=== PATIENT | female | born 1980 | race Two or more races ===

== ENCOUNTER 2021-11-22 14:25 | Emergency (ER) | payer MEDICAID, OTHER ==
[~2021-11-22] VITALS: Ht 152.4 cm; Wt 81.6 kg
[2021-11-22] MEDS ORDERED: LORazepam 0.5 MG TAB PO ONE (17:15)
[2021-11-22 18:08] VITALS: BP 161/98
== END 2021-11-22 18:40 | disposition home or self-care (01) ==
LOC: EDBD 14:25 → ER 14:25
DX: F41.9 Anxiety disorder, unspecified (principal); F32.9 Major depressive disorder, single episode, unspecified; F10.10 Alcohol abuse, uncomplicated

== ENCOUNTER 2024-11-18 01:01 | Emergency (ER) | payer MEDICAID, OTHER ==
[~2024-11-18] VITALS: Ht 165.1 cm; Wt 75.0 kg
[2024-11-18 01:10] VITALS: BP 147/92; PULSE 91; RESP 16; O2SAT 96
--- NOTE | 2024-11-18 01:25 | ED.PDOC ---
History of Present Illness HPI Comments 44-year-old female came to ER due to anxiety. Patient does have history of anxiety. States she was asleep earlier and she woke up with numbness and tingling over her right arm, followed by shortness of breath, dizziness, near syncope and nausea. States he had a similar event before due to her anxiety. 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 History Family History Family History: Reviewed,noncontributory to illness, No family hx of Cancer, No family hx of DM, No family hx of Heart aleena, No family hx of HTN, No family hx o fKidney aleena, No family hx of Liver aleena, No family hx of Lung aleena, No family hx of Stroke Social History Smoker: Non-Smoker Alcohol: Heavy Drugs: Denies Drug Use Lives In: Home Constitutional: denies: chills, diaphoresis, fatigue, fever, malaise, sweats, weakness, others EENTM: denies: blurred vision, double vision, ear bleeding, ear discharge, ear drainage, ear pain, ear ringing, eye pain, eye redness, hearing loss, mouth pain, mouth swelling, nasal discharge, nose bleeding, nose congestion, nose pain, photophobia, tearing, throat pain, throat swelling, voice changes, others Respiratory: reports: SOB at rest; denies: cough, hemoptysis, orthopnea, shortness of breath, SOB with excertion, stridor, wheezing, others Cardiovascular: denies: chest pain, dizzy spells, diaphoresis, Dyspnea on exertion, edema, irregular heart beat, left arm pain, lightheadedness, palpitations, PND, syncope, others Gastrointestinal: reports: nausea; denies: abdomen distended, abdominal pain, blood streaked bowels, constipated, diarrhea, dysphagia, difficulty swallowing, hematemesis, melena, poor appetite, poor fluid intake, rectal bleeding, rectal pain, vomiting, others Genitourinary: denies: abnormal vagina bleeding, burning, dyspareunia, dysuria, flank pain, frequency, hematuria, incontinence, pain, , vagina discharge, urgency, others Neurological: reports: dizziness, fainting, tingling (Right arm); denies: headache, left sided numbness, left sided weakness, numbness, paresthesia, pre- existing deficit, right sided numbness, right sided weakness, seizure, speech problems, tremors, weakness, others Musculoskeletal: denies: back pain, gout, joint pain, joint swelling, muscle pain, muscle stiffness, neck pain Integumetry: denies: bruises, change in color, change in hair/nails, dryness, laceration, lesions, lumps, rash, wounds, others Allergic/Immunocompromised: denies: Difficulty Healing, Frequent Infections, Hives, Itching, others Hematologic/Lymphatic: denies: anemia, blood clots, easy bleeding, easy bruising, swollen glands, others Endocrine: denies: excessive hunger, excessive sweating, excessive thirst, excessive urination, flushing, intolerance to cold, intolerance to heat, unexplained weight gain, unexplained weight loss, others Psychiatric: reports: anxiety; denies: bipolar disorder, depression, hopeless, panic disorder, schizophrenia, sleepless, suicidal, others Physical Exam General Appearance: Mild Distress, Normal HEENT: Normal ENT Inspection, Pharynx Normal, TMs Normal Neck: Full Range of Motion, Non-Tender, Normal, Normal Inspection Respiratory: Chest Non-Tender, Lungs Clear, No Accessory Muscle Use, No Respiratory Distress, Normal Breath Sounds Cardiovascular: No Edema, No JVD, No Murmur, No Gallop, Normal Peripheral Pulses, Regular Rate/Rhythm Breast Exam: Deferred Gastrointestinal: No Organomegaly, Non Tender, No Pulsatile Mass, Normal Bowel Sounds, Soft Genitalia: Deferred Pelvic: Deferred Rectal: Deferred Extremities: No calf tenderness, Normal capillary refill, Normal inspection, Normal range of motion, Non-tender, No pedal edema Musculoskeletal : Apperance: Normal Neurologic: Alert, investigator utility bill 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 Was a procedure done?: No Differential Dx Considerations may include: Anemia, electrolyte imbalance, anxiety X-Ray, Labs, Meds, VS The patient has severe anxiety. She is noncompliant with medication and refused to take an additional medication. We decided that lab tests would not help her and recommended that she follow up with the psychiatrist and therapist for further evaluation and care. Time of 1ST Reevaluation: 01:22 Reevaluation 1ST: Unchanged Patient Education/Counseling: Diagnosis, Treatment Family Education/Counseling: No Family Present Departure 1 Departure Time of Disposition: 01:29 Impression: Primary Impression: Anxiety Additional Impression: Panic attack Disposition: HOME / SELF CARE / HOMELESS Condition: Stable Additional Instructions: Reassessed patient, vital signs stable. Denies any new symptoms. Patient is able to tolerate PO and ambulate/be mobile at their baseline without concern. Risks and benefits of all medications given or prescribed, if any, discussed. All lab work, imaging and diagnostic studies were reviewed by me. The patient was counseled extensively on my clinical impression, diagnosis, expected course of the disease, and plan, including their follow-up care. Will discharge patient. Patient instructed to follow up with Primary Care Physician within 24-48 hours. Strict return precautions given for further exacerbation of symptoms or for new symptoms. The patient was given the opportunity to ask questions and all questions were answered by myself and the nursing/tech staff. Patient is in agreement with the care plan. The patient verbally expressed understanding of the discharge instructions, including the reasons to return to the Emergency Department. Discharged With: Self Critical Care Note Critical Care Time?: No Stability Stability form required: No Heart Score Heart Score: Heart Score Response (Comments) Value History N/A 0 EKG N/A 0 Age N/A 0 Risk Factors N/A 0 Troponin N/A 0 Total 0 I personally scribed for MACIEJ UGALDE MD ([email or web address]) on 11/18/24 at 01:25. Electronically submitted by Jose Christian ([email or web address]). MACIEJ UGALDE MD Nov 18, 2024 01:25
== END 2024-11-18 04:06 | disposition home or self-care (01) ==
LOC: ER 01:01
DX: F41.0 Panic disorder [episodic paroxysmal anxiety] (principal); R55 Syncope and collapse; R42 Dizziness and giddiness; R11.0 Nausea; Z79.1 Long term (current) use of non-steroidal anti-inflammatories (NSAID)

== ENCOUNTER 2025-01-06 12:55 | Emergency (ER) | payer MEDICAID ==
[~2025-01-06] VITALS: Ht 162.6 cm; Wt 68.6 kg
[2025-01-06 13:58] VITALS: PULSE 73; RESP 17; O2SAT 97
[2025-01-06] MEDS: ONDANSETRON HCL 4 MG/2 ML VIAL IV ONE (13:58)
--- NOTE | 2025-01-06 13:58 | ED.PDOC ---
History of Present Illness HPI Comments This is a 44-year-old female who comes in with chief complaint of status post fall from a ladder. The patient states that she was climbing a ladder when the ladder slipped down and she fell forward and landed on her chest and abdominal area. The patient states that she is not having really difficulty breathing but she is having a significant amount of pain. She states that the pain is over the 8/10 at this time. She was able to ambulate into the emergency department's without any difficulty. She does have some bruising towards her chest area. Chief Complaint: Fall Injury Time Seen by MD: 13:07 Primary Care Provider: unknown Reviewed Notes: Nurses Notes, Medications, Allergies (Allergies to acetaminophen) Allergies: Coded Allergies: Acetaminophen (Verified Allergy, Unknown, 11/22/21) Home Meds Active Scripts Nitrofurantoin Monohydrate Mac (Macrobid) 100 Mg Cap, 100 MG PO BID for 5 Days, #10 CAP Prov:RANJEET ROQUE MD 01/06/25 Information Source: Patient Mode of Arrival: Ambulatory Severity: Moderate Timing: Minutes Duration: Since onset Prehospital treatment: None Location: Tenderness to the abdominal and chest area with some bruising to the chest Past Medical History PAST MEDICAL HISTORY: Anxiety, High Lipids Past Medical History (Other): Prediabetic Surgical History: Denies all surgeries Surgical History (Other): Left thumb partial amputation DOVETAILER History: No Pertinent DOVETAILER History Family History Family History: Reviewed,noncontributory to illness, No family hx of Cancer, No family hx of DM, No family hx of Heart aleena, No family hx of HTN, No family hx ofKidney aleena, No family hx of Liver aleena, No family hx of Lung aleena, No family hx of Stroke Social History Smoker: Non-Smoker Alcohol: Heavy Drugs: Denies Drug Use Lives In: Home Constitutional: denies: chills, diaphoresis, fatigue, fever, malaise, sweats, weakness, others EENTM: denies: blurred vision, double vision, ear bleeding, ear discharge, ear drainage, ear pain, ear ringing, eye pain, eye redness, hearing loss, mouth pain, mouth swelling, nasal discharge, nose bleeding, nose congestion, nose pain, photophobia, tearing, throat pain, throat swelling, voice changes, others Respiratory: denies: cough, hemoptysis, orthopnea, SOB at rest, shortness of breath, SOB with excertion, stridor, wheezing, others Cardiovascular: reports: chest pain; denies: dizzy spells, diaphoresis, Dyspnea on exertion, edema, irregular heart beat, left arm pain, lightheadedness, palp itations, PND, syncope, others Gastrointestinal: reports: abdominal pain; denies: abdomen distended, blood streaked bowels, constipated, diarrhea, dysphagia, difficulty swallowing, hematemesis, melena, nausea, poor appetite, poor fluid intake, rectal bleeding, rectal pain, vomiting, others Genitourinary: denies: abnormal vagina bleeding, burning, dyspareunia, dysuria, flank pain, frequency, hematuria, incontinence, pain, , vagina disch arge, urgency, others Neurological: denies: dizziness, fainting, headache, left sided numbness, left sided weakness, numbness, paresthesia, pre-existing deficit, right sided numbness, right sided weakness, seizure, speech problems, tingling, tremors, weakness, others Musculoskeletal: denies: back pain, gout, joint pain, joint swelling, muscle pain, muscle stiffness, neck pain, others Integumetry: denies: bruises, change in color, change in hair/nails, dryness, laceration, lesions, lumps, rash, wounds, others Allergic/Immunocompromised: denies: Difficulty Healing, Frequent Infections, Hives, Itching, others Hematologic/Lymphatic: denies: anemia, blood clots, easy bleeding, easy bruising, swollen glands, others Endocrine: denies: excessive hunger, excessive sweating, excessive thirst, excessive urination, flushing, intolerance to cold, intolerance to heat, unexplained weight gain, unexplained weight loss, others Psychiatric: denies: anxiety, bipolar disorder, depression, hopeless, panic disorder, schizophrenia, sleepless, suicidal, others Physical Exam General Appearance: Moderate Distress HEENT: Normal ENT Inspection, Pharynx Normal, TMs Normal Neck: Full Range of Motion, Non-Tender, Normal, Normal Inspection Respiratory: Lungs Clear, No Accessory Muscle Use, No Respiratory Distress, Normal Breath Sounds, Other (Chest tenderness to palpation) Cardiovascular: No Edema, No JVD, No Murmur, No Gallop, Normal Peripheral Pulses, Regular Rate/Rhythm Breast Exam: Deferred Gastrointestinal: Diffuse, No Organomegaly, No Pulsatile Mass, Normal Bowel Sounds, Soft, Tenderness Genitalia: Deferred Pelvic: Deferred Rectal: Deferred Extremities: No calf tenderness, Normal capillary refill, Normal inspection, Normal range of motion, Non-tender, No pedal edema Musculoskeletal : Apperance: Normal 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 Was a procedure done?: No Differential Dx Considerations may include: Fracture, intra-abdominal rupture, internal bleeding, contusion X-Ray, Labs, Meds, VS Vital Signs Date Time Temp Pulse Resp B/P (MAP) Pulse Ox O2 Delivery O2 Flow Rate FiO2 01/06/25 15:18 73 16 138/97 (111) 96 01/06/25 15:17 73 17 138/97 01/06/25 14:00 92 16 142/92 01/06/25 13:58 73 17 97 Room Air* 0 21 01/06/25 13:16 98.9 97 20 151/99 (116) 97 98.9 01/06/25 13:01 98.9 97 20 151/99 (116) 97 98.9 01/06/25 13:01 97 20 97 Room Air Lab Test 01/06/25 16:50 01/06/25 13:44 Range/Units Urine Color Yellow Yellow Urine Clarity Clear Clear Urine pH 5.5 5.0-9.0 Urine Specific [place] 1.020 1.001-1.035 Urine Protein Trace H Negative Urine Ketones Negative Negative Urine Blood Trace H Negative /uL Urine Nitrite Negative Negative Urine Bilirubin Negative Negative Urine Urobilinogen Normal Negative mg/dL Urine Leukocyte Esterase 1+ Negative /uL Urine RBC 2 0 - 4 /hpf Urine Microscopic WBC 8 H 0-5 /HPF Urine Squamous Epithelial Cells Few <5 /hpf Urine Bacteria None seen None Seen /hpf Urine Mucus Few None Seen Urine Glucose Normal Normal mg/dL White Blood Count 8.6 4.4-10.8 10^3/uL Red Blood Count 4.11 4.0-5.20 10^6/uL Hemoglobin 13.1 12.2-16.2 g/dL Hematocrit 38.1 36.0-46.0 % Mean Corpuscular Volume 92.9 80.0-100.0 fL Mean Corpuscular Hemoglobin 32.0 28.0-32.0 pg Mean Corpuscular Hemoglobin Concent 34.4 32.0-36.0 g/dL Red Cell Distribution Width 13.0 11.8-14.3 % Platelet Count 339 140-450 10^3/uL Mean Platelet Volume 7.1 6.9-10.8 fL Neutrophils (%) (Auto) 70.5 37.0-80.0 % Lymphocytes (%) (Auto) 21.0 10.0-50.0 % Monocytes (%) (Auto) 5.2 0.0-12.0 % Eosinophils (%) (Auto) 2.6 0.0-7.0 % Basophils (%) (Auto) 0.7 0.0-2.0 % Neutrophils # (Auto) 6.0 1.6-8.6 10 ^3/uL Lymphocytes # (Auto) 1.8 0.4-5.4 10 ^3/uL Monocytes # (Auto) 0.4 0-1.3 10 ^3/uL Eosinophils # (Auto) 0.2 0-0.8 10 ^3/uL Basophils # (Auto) 0.1 0-0.2 10 ^3/uL Nucleated Red Blood Cells 0.2 % Sodium Level 140 136-145 mmol/L Potassium Level 3.6 3.5-5.1 mmol/L Chloride Level 106 98-107 mmol/L Carbon Dioxide Level 26 20-31 mmol/L Anion Gap 8 5-15 Blood Urea Nitrogen 12 9-23 mg/dL Creatinine 0.75 0.550-1.02 mg/dL Glomerular Filtration Rate Calc 101 >90 mL/min BUN/Creatinine Ratio 16.0 10.0-20.0 Serum Glucose 121 H 74-106 mg/dL Calcium Level 10.0 8.7-10.4 mg/dL Current Medications Medications (Trade) Dose Ordered Sig/Anupam Route Start Time Stop Time Status Last Admin Ondansetron HCl (Zofran) 4 mg ONCE ONCE IV 01/06/25 13:15 01/06/25 13:16 DC 01/06/25 13:58 Morphine Sulfate 4 mg ONCE ONCE IV 01/06/25 13:15 01/06/25 13:16 DC 01/06/25 14:00 IV Hep-Lock was established The patient was given Zofran 4 mg IV push for nausea The patient was given morphine 4 mg IV push for the pain The urine test is positive for a UTI The CBC and chemistry panel are within normal limits The CAT scan of the abdomen and pelvis was done with IV contrast and it shows: No sign of any abnormalities at this time The patient was being discharged. The patient will return to the emergency department's the condition worsens Images Reviewed?: Images reviewed and evaluated by me Time of 1ST Reevaluation: 13:58 Reevaluation 1ST: Unchanged Patient Education/Counseling: Diagnosis, Treatment, Prognosis, Need For Follow Up Family Education/Counseling: No Family Present Departure 1 Departure Time of Disposition: 19:53 Impression: Primary Impression: Abdominal contusion Qualified Codes: S30.1XXA - Contusion of abdominal wall, initial encounter Additional Impressions: History of fall UTI (urinary tract infection) Qualified Codes: N30.00 - Acute cystitis without hematuria Disposition: HOME / SELF CARE / HOMELESS Condition: Fair e-Prescriptions Nitrofurantoin Monohydrate Mac (Macrobid) 100 Mg Cap 100 MG PO BID for 5 Days, #10 CAP Prov: RANJEET ROQUE MD 01/06/25 Discharged With: Self Critical Care Note Critical Care Time?: No Stability Stability form required: No Heart Score Heart Score: Heart Score Response (Comments) Value History N/A 0 EKG N/A 0 Age N/A 0 Risk Factors N/A 0 Troponin N/A 0 Total 0 RANJEET ROQUE MD Jan 06, 2025 13:58
[2025-01-06] MEDS: MORPHINE SULFATE 4 MG/ML SYR/VIAL IV ONE (14:00)
[2025-01-06 14:04] LABS: Basophils # (auto) 0.1 10 ^3/uL (0-0.2); Basophils % (auto) 0.7 % (0.0-2.0); Eosinophils # (auto) 0.2 10 ^3/uL (0-0.8); Eosinophils % (auto) 2.6 % (0.0-7.0); Hematocrit 38.1 % (36.0-46.0); Hemoglobin 13.1 g/dL (12.2-16.2); Lymphocytes # (auto) 1.8 10 ^3/uL (0.4-5.4); Mean Corpuscular Hgb Conc. 34.4 g/dL (32.0-36.0); Mean Corpuscular Volume 92.9 fL (80.0-100.0); Monocytes # (auto) 0.4 10 ^3/uL (0-1.3); Monocytes % (auto) 5.2 % (0.0-12.0); Neutrophils % (auto) 70.5 % (37.0-80.0); Nucleated Red Blood Cells % 0.2 %; Platelet Count (auto) 339 10^3/uL (140-450); Red Blood Cells 4.11 10^6/uL (4.0-5.20); White Blood Cell 8.6 10^3/uL (4.4-10.8)
[2025-01-06 14:13] LABS: Chloride 106 mmol/L (98-107); Potassium 3.6 mmol/L (3.5-5.1); Sodium 140 mmol/L (136-145)
[2025-01-06 14:14] LABS: Anion Gap 8 (5-15); Carbon Dioxide 26 mmol/L (20-31)
[2025-01-06 14:20] LABS: Blood Urea Nitrogen 12 mg/dL (9-23); Glucose 121 mg/dL (74-106)
[2025-01-06] MEDS: IOHEXOL 300 MG/ML 100ML BOTTLE IJ ONE (15:51)
--- NOTE | 2025-01-06 16:10 | DVH ---
Exam: CT CT CHEST/AB/PL W CON- IV ONLY History: trauma/fall Comparison Study: None Technique: Multidetector spiral CT of the chest, abdomen, and pelvis was performed from lung bases to pubic symphysis. Imaging was performed without IV contrast. Axial, coronal and sagittal multiplana r reformats were obtained from the axial data set by the technologist. Radiation Dose : 1. Abdomen/Pelvis: CTDIvol 9.6 mGy, DLP 722 mGy*cm. Findings: Evaluation of solid organs is limited due to lack of intravenous contrast use. Lungs : No acute or significant lung base finding. Normal heart size. No pleural or pericardial effu nichelle. No pneumothorax. Cardiac: Normal heart size Liver: The liver is normal in size. No focal lesions. Diffuse steatosis Gallbladder and Biliary Tree: Unremarkable Spleen: Unremarkable Pancreas: The pancreas is grossly normal in appearance. Adrenal Glands: Unremarkable Kidneys: Kidneys are grossly normal without calculi or hydronephrosis. Bladder: Grossly unremarkable for degree of distention. Bowel: The stomach is grossly normal in appearance. Small bowel and colon are normal in caliber and d istribution. The appendix is not visualized; however, no secondary findings of acute appendicitis id entified. Ascites: Absent Lymphadenopathy: No mesenteric, retroperitoneal or periportal lymphadenopathy. Abdominal Wall and Mesentery: Unremarkable. Vasculature: The visualized abdominal aorta is normal in size and caliber. Evaluation of abdominal a nd pelvic vessels is limited due to lack of intravenous contrast. Pelvic Organs: Unremarkable Musculoskeletal: No aggressive focal bony lesions, acute fractures or dislocation. IMPRESSION: 1. No acute findings identified in the chest, abdomen, or pelvis Radiation optimization: All CT scans at this facility use at least one of these dose optimization derek hniques: automated exposure control mA and/or kV adjustment per patient size (includes targeted exam s where dose is matched to clinical indication) or iterative reconstruction.
[2025-01-06 18:25] LABS: Urine Bacteria None Seen /hpf (None Seen)
[2025-01-06 18:43] LABS: Urine Blood TRACE /uL (Negative); Urine Clarity Clear (Clear); Urine Color Yellow (Yellow); Urine Mucus FEW (None Seen); Urine Protein, UAD TRACE (Negative); Urine Squamous Epithelial Cell FEW /hpf (<5); Urine Urobilinogen Normal (Negative); Urine WBC 8 /HPF (0-5); Urine pH 5.5 (5.0-9.0)
[2025-01-06] MEDS ORDERED: NITR-87 PO (19:55)
[2025-01-06 21:48] VITALS: BP 135/81; PULSE 71; RESP 12; TEMP 97.7; O2SAT 100
== END 2025-01-06 21:58 | disposition home or self-care (01) ==
LOC: ER 12:55
DX: S30.1XXA Contusion of abdominal wall, initial encounter (principal); N39.0 Urinary tract infection, site not specified; Z79.899 Other long term (current) drug therapy; Z88.6 Allergy status to analgesic agent; W11.XXXA Fall on and from ladder, initial encounter; Y93.89 Activity, other specified; Y92.89 Other specified places as the place of occurrence of the external cause; Y99.8 Other external cause status
CPT/HCPCS: 36415; 71260; 74177; 80048; 81001; 85025; 96374; 96375; 99285; J2270; J2405; Q9967